=== PATIENT | female | born 1985 | race Caucasian/White ===

== ENCOUNTER 2018-11-07 11:30 | Inpatient (IN) | payer OTHER ==
[~2018-11-07] VITALS: Ht 162.6 cm; Wt 77.6 kg
[2018-11-24] MEDS ORDERED: PRENATAL TABLE1 EAC1 PO (02:39)
== END 2018-11-26 12:41 | disposition home or self-care (01) | DRG 807 ==
LOC: OB/GYN 11-24 02:15 → LDR 11-24 02:15 → OB/GYN 11-24 03:20 → LDR 11-24 06:59 → OB/GYN 11-24 17:02 → LDR 11-28 11:30
PROVIDERS: ADMIT Obstetrics & Gynecology Maternal & Fetal Medicine
PROC: 10E0XZZ Delivery of Products of Conception, External Approach (ICD-10-PCS; principal; 2018-11-24)
PROC: 0UQGXZZ Repair Vagina, External Approach (ICD-10-PCS; 2018-11-24)
PROC: 4A1HXCZ Monitoring of Products of Conception, Cardiac Rate, External Approach (ICD-10-PCS; 2018-11-24)
DX: O71.4 Obstetric high vaginal laceration alone (principal); Z37.0 Single live birth; Z3A.39 39 weeks gestation of pregnancy

== ENCOUNTER → 2021-01-22 | Outpatient (CLI) | payer OTHER ==
[~2021-01-22] MED LIST: PRENATAL TABLE1 EAC1 PO
== END | disposition home or self-care (01) ==
LOC: NST 12:54
PROVIDERS: ATTEND Obstetrics & Gynecology Maternal & Fetal Medicine
DX: Z34.82 Encounter for supervision of other normal pregnancy, second trimester (principal)

== ENCOUNTER 2021-04-09 12:13 | Inpatient (IN) | payer OTHER ==
[~2021-04-09] VITALS: Ht 162.6 cm; Wt 85.7 kg
[2021-04-10] MEDS ORDERED: NIFEDIPINE ER30 M1 (16:19)
== END 2021-04-11 11:25 | disposition home or self-care (01) | DRG 807 ==
LOC: LDR 12:13 → SURG-SUITE 04-10 17:25
PROVIDERS: ADMIT Obstetrics & Gynecology Maternal & Fetal Medicine; ATTEND Obstetrics & Gynecology Maternal & Fetal Medicine
PROC: 10E0XZZ Delivery of Products of Conception, External Approach (ICD-10-PCS; principal; 2021-04-09)
PROC: 0KQM0ZZ Repair Perineum Muscle, Open Approach (ICD-10-PCS; 2021-04-09)
PROC: 4A1HXFZ Monitoring of Products of Conception, Cardiac Rhythm, External Approach (ICD-10-PCS; 2021-04-09)
DX: O42.02 Full-term premature rupture of membranes, onset of labor within 24 hours of rupture (principal); O70.1 Second degree perineal laceration during delivery; Z37.0 Single live birth; Z3A.37 37 weeks gestation of pregnancy